=== PATIENT | male | born 1980 | race Caucasian/White ===

== ENCOUNTER 2018-10-09 11:46 | Emergency (ER) | payer MEDICAID ==
[2018-10-09 12:32] LABS: ADD MAN DIFF? NO
[2018-10-09] MEDS: ASPIRIN 325 MG TAB PO (12:43)
[2018-10-09 12:44] LABS: BASOPHILS % 0.4 % (0.0-2.0); EOSINOPHILS # 0.1 10^3/ul (0.0-0.5); EOSINOPHILS % 0.9 % (0.0-7.0); HEMATOCRIT 45.9 % (42.0-52.0); HEMOGLOBIN 15.7 g/dl (14.0-18.0); LYMPHOCYTES # 1.5 10^3/ul (0.8-2.9); LYMPHOCYTES % 19.3 % (15.0-51.0); MEAN CORPUSCULAR HEMOGLOBIN 30.3 pg (29.0-33.0); MEAN CORPUSCULAR HGB CONC 34.2 g/dl (32.0-37.0); MEAN CORPUSCULAR VOLUME 88.4 fl (82.0-101.0); MEAN PLATELET VOLUME 10.6 fl (7.4-10.4); MONOCYTE # 0.5 10^3/ul (0.3-0.9); MONOCYTES % 6.7 % (0.0-11.0); NEUTROPHIL # 5.6 10^3/ul (1.6-7.5); NEUTROPHILS % 72.2 % (39.0-77.0); PLATELET COUNT 208 10^3/UL (140-415); RED BLOOD COUNT 5.19 10^6/ul (4.70-6.10); RED CELL DISTRIBUTION WIDTH 12.8 % (11.5-14.5)
[2018-10-09 12:44] LABS: WHITE BLOOD COUNT 7.8 10^3/ul (4.8-10.8)
[2018-10-09] MEDS: NITROGLYCERIN (SL) 0.4 MG TAB SL (12:44)
[2018-10-09 12:54] LABS: ALANINE AMINOTRANSFERASE 41 IU/L (13-69); ALBUMIN 4.7 g/dl (3.3-4.9); ALBUMIN/GLOBULIN RATIO 1.38; ALKALINE PHOSPHATASE 115 IU/L (42-121); ANION GAP 11 (5-13); ASPARTATE AMINO TRANSFERASE 38 IU/L (15-46); BILIRUBIN,INDIRECT 0.4 mg/dl (0-1.1); BILIRUBIN,TOTAL 0.4 mg/dl (0.2-1.3); BLOOD UREA NITROGEN 14 mg/dl (7-20); CALCIUM 9.2 mg/dl (8.4-10.2); CARBON DIOXIDE 26 mmol/L (21-31); CHLORIDE 104 mmol/L (97-110); CREATINE KINASE 371 IU/L (23-200); CREATININE 0.82 mg/dl (0.61-1.24); Estimated GFR > 60 mL/min (>60); GLUCOSE 92 mg/dl (70-220); SODIUM 141 mmol/L (135-144); TOTAL PROTEIN 8.1 g/dl (6.1-8.1)
[2018-10-09 12:56] LABS: INR 0.89; PROTIME 12.1 Sec (11.9-14.9); PT RATIO 0.9
[2018-10-09 12:57] LABS: PARTIAL THROMBOPLASTIN TIME 30.7 Sec (23.0-35.0)
[2018-10-09 13:06] LABS: B-TYPE NATRIURETIC PEPTIDE 25 PG/ML (0-125); CK INDEX 1.7; TROPONIN-I < 0.012 ng/ml (0.000-0.120)
[2018-10-09 13:13] LABS: CK-MB 6.33 ng/ml (0.0-2.4)
[2018-10-09] MEDS: SOD CHLORIDE 0.9% 1,000 ML IV (13:54)
[2018-10-09] MEDS: KETOROLAC 30 MG INJ IV (13:56)
== END 2018-10-09 14:40 | disposition home or self-care (01) ==
LOC: E/R 11:46
DX: M62.82 Rhabdomyolysis (principal); M94.0 Chondrocostal junction syndrome [Tietze]; F17.210 Nicotine dependence, cigarettes, uncomplicated
CPT/HCPCS: 71045; 80053; 82550; 82553; 83880; 84484; 85025; 85610; 85730; 93005; 96361; 96374; 99285-25